=== PATIENT | male | born 1940 | race Caucasian/White ===

== ENCOUNTER → 2019-04-29 14:19 | Outpatient (CLI) | payer MEDICARE, OTHER, SELFPAY ==
--- NOTE | 2019-04-29 14:23 | DI.RAD.S_ITS ---
PROCEDURE: XR LUMBAR SPINE 2-3V INDICATIONS: right lumbar pain TECHNIQUE: 3 views of the lumbar spine were acquired. COMPARISON: [facility], CT, CT CHEST ABDOMEN PELVIS WITH CONTRAST, 03/20/2018, 9:16. [facility], CT, CT ABDOMEN WITH CONTRAST, 02/01/2019, 10:24. FINDINGS: Bones: 12 pairs of ribs are seen in the comparison chest CT. There are 6 jib-rfs-ydlqagi vertebrae. The last lumbar vertebra is designated as lumbarized S1. There is grade 1 anterolisthesis of L4 on L5 and L5 on S1. No vertebral body compression fractures. No suspicious bony lesions. There is moderate degenerative disc disease at L4-L5 and L5-S1, and mild degenerative disease at other levels. Severe facet arthropathy is present at L4-L5 and L5-S1. Soft tissues: Overlying bowel gas pattern is normal. No suspicious soft tissue calcifications. IMPRESSION: 1. Degenerative disc and facet disease. 2. 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 Dictated by: Moshe Dewitt M.D. on 04/29/2019 at 17:30 Approved by: Moshe Dewitt M.D. on 04/29/2019 at 17:35
== END ==
PROVIDERS: PCP Internal Medicine Geriatric Medicine; Visit Provider Registered Nurse
DX: M47.817 Spondylosis without myelopathy or radiculopathy, lumbosacral region (principal); M47.816 Spondylosis without myelopathy or radiculopathy, lumbar region; M54.5 Low back pain; M51.36 Other intervertebral disc degeneration, lumbar region; M51.37 Other intervertebral disc degeneration, lumbosacral region; M43.16 Spondylolisthesis, lumbar region; M43.17 Spondylolisthesis, lumbosacral region
CPT/HCPCS: 72100; 99214

== ENCOUNTER → 2019-05-03 10:26 | Outpatient (CLI) | payer MEDICARE, OTHER, SELFPAY ==
--- NOTE | 2019-05-03 10:28 | DI.CT.S_ITS ---
PROCEDURE: CT LUMBAR SPINE WO CON INDICATIONS: right lumbar pain TECHNIQUE: Noncontrast 3 mm thick sections acquired from the T12 level to the sacrum. Sagittal and coronal reformats were constructed. For radiation dose reduction, the following was used: automated exposure control. COMPARISON: [facility], CR, XR LUMBAR SPINE 2-3V, 04/29/2019, 14:21. FINDINGS: Image quality: Excellent. Bones: No acute vertebral body compression fractures. No suspicious lytic or blastic bony lesions. No pars defects. This patient has transitional lumbar anatomy. For the purposes of this examination, the level with the last well-developed pair of ribs is considered to be T12. By this numbering scheme, there is a vestigial rib seen on the right side at L1. The S1 level is considered to be a lumbarized, transitional segment. There is a relatively well developed S1-S2 segment. T11-T12: Partial bony fusion can be seen at this level, with at least moderate loss of disc height. Bridging endplate osteophytes are seen. Mild bilateral neural foraminal narrowing is seen. Moderate central canal narrowing is seen. T12-L1: The disc height is well-preserved. Bridging endplate osteophytes are seen. No significant neural foraminal or central canal narrowing can be seen. L1-L2: The disc height is well-preserved. Calcification of the posterior aspect of the annulus fibrosis can be seen. Partially bridging anterior osteophytes are seen. Moderate generalized disc bulge is seen. Njon-km-cpgyrspg bilateral neural foraminal narrowing is seen. There is at least moderate central canal narrowing seen, with facet hypertrophy. L2-L3: The disc height is well-preserved. There is calcification seen involving the posterior aspect of the annulus fibrosis. There is at least moderate bilateral neural foraminal narrowing seen, left worse than right. Moderate central canal narrowing is seen. L3-L4: The disc height is well preserved. There is a Schmorl's node seen involving the inferior endplate of L3, as on series 4 image 22. Moderate generalized disc bulge is seen. Moderate facet joint hypertrophy is seen. Moderate to severe bilateral neural foraminal narrowing is seen. Moderate to severe central canal narrowing is seen. L4-L5: The disc height is relatively well-preserved. Moderate to severe disc bulge is seen. Large prominent facet hypertrophy is seen. There is moderate to severe bilateral neural foraminal narrowing seen. Moderate to severe central canal narrowing is seen. L5-S1: Grade 1 anterolisthesis is seen at this level. There is at least moderate loss of disc height seen, which is more prominent on the right side than on the left. Partially bridging endplate osteophytes are seen on the right. There is moderate to severe bilateral neural foraminal narrowing seen, right worse than left. Moderate to severe central canal narrowing is seen. S1-S2: Mild loss of disc height is seen. There is mild to moderate disc bulge seen. There is moderate right-sided neural foraminal narrowing seen. No significant left-sided neural foraminal narrowing is seen. Apparent paravertebral posterior elements can be seen on the left with a left hemilaminotomy. Please correlate with known patient history. No significant central canal narrowing is seen. Soft tissues: No retroperitoneal masses or hematomas. Visualized aorta is normal in caliber. Pacer leads are seen on the rn ostomy image. IMPRESSION: Multiple levels of lumbar spine degenerative change are seen, which are most prominent inferiorly. Transitional lumbar anatomy. Dictated by: Delano Shirley M.D. on 05/03/2019 at 11:24 Approved by: Delano Shirley M.D. on 05/03/2019 at 11:32
== END ==
PROVIDERS: Family Provider Internal Medicine Geriatric Medicine; PCP Internal Medicine Geriatric Medicine; Visit Provider Physical Medicine & Rehabilitation
DX: M54.5 Low back pain (principal); M47.817 Spondylosis without myelopathy or radiculopathy, lumbosacral region; M47.816 Spondylosis without myelopathy or radiculopathy, lumbar region
CPT/HCPCS: 72131

== ENCOUNTER 2019-06-04 13:47 | Outpatient (CLI) | payer MEDICARE, OTHER, SELFPAY ==
--- NOTE | 2019-06-04 13:49 | DI.RAD.S_ITS ---
PROCEDURE: PAIN L/SI FACET INJ/BLK 1STL INDICATIONS: SPONDYLOSIS FINDINGS: Fluoroscopic spot filming was performed to verify placement of spinal needles at the right L4, L5, S1 level(s) 4 medial branch block, as labeled on the films. Appropriate location(s) of the needle tip(s) was confirmed by injection of iodinated contrast. IMPRESSION: Successful unilateral right-sided needle tip localization for 3 level medial branch block on the right. Dictated by: Lazarus Jones M.D. on 06/04/2019 at 16:24 Approved by: Lazarus Jones M.D. on 06/04/2019 at 16:24
[2019-06-04 13:57] VITALS: BP 157/80; PULSE 67; RESP 16; TEMP 36.6; O2SAT 98
[2019-06-04 14:48] VITALS: BP 161/85; PULSE 61; RESP 16; O2SAT 97
[2019-06-04] MEDS: MIDAZOLAM 5 MG/5 ML VIAL IV (14:50)
[2019-06-04 14:53] VITALS: BP 131/78; PULSE 65; RESP 16; O2SAT 98
[2019-06-04] MEDS: BUPIVACAINE 0.5% (PF) VIAL 2 ML INJ (14:58)
[2019-06-04] MEDS: IOPAMIDOL 15 ML VIAL 3 ML INJ (14:58)
[2019-06-04] MEDS: LIDOCAINE 1% 20 ML 10 ML INJ (14:58)
[2019-06-04] MEDS: BETAMETHASONE 30 MG/5 ML MDV 12 MG INJ (14:58)
[2019-06-04 14:59] VITALS: BP 138/74; PULSE 62; RESP 16; O2SAT 98
--- NOTE | 2019-06-04 15:00 | PC.NURSE ---
ASSISTING PT OFF TABLE AND TRANSPORTING TO POST PROC AREA IN STABLE CONDITION. PASSING RN CARE OF PT TO DANIEL Rucker RN. PREPPED AND ADMINISTERED VERSED AND FENTANYL. ALL 0THER MEDS PREPPED AND ADMINISTERED BY DR. JONES.
[2019-06-04 15:05] VITALS: BP 140/78; PULSE 67; RESP 16; O2SAT 95
--- NOTE | 2019-06-04 15:07 | PM.PROC.1 ---
Procedures Date/Time Date of procedure: 06/04/19 Time of procedure: 15:08 General Procedure description: POST OP DIAGNOSIS 1. FACET ARTHROPATHY PROCEDURES 1. Right L4, L5 and S1 MB BLOCKS PHYSICIAN: DO LEAH Jurado is referred by Dr. Marti for treatment of Right Axial LBP. DESCRIPTION OF PROCEDURE Fluoroscopically guided, contrast-controlled right L4, L5 and S1 medial branch blocks with 0.5cc of 0.5% Marcaine. Following review of allergy and review of potential side effects and complications, including, but not necessarily limited to, infection, allergic reaction, local tissue breakdown, nerve injury, paralysis, stroke and possible , the patient indicated that the patient understood and agreed to proceed. An informed consent document was signed by the patient, witnessed by a nurse, and placed in the patient's chart. After review of previous anaesthesic history and IV conscious sedation the patient was deemed safe to proceed with todays procedure with IV conscious sedation as ASA class II designation. Safety time-out was performed to confirm patient ID, procedure to be performed and site of procedure. IV sedation was accomplished with a combination of 2mg of Versed was administered by the RN after DO order, titrated to patient comfort during the course of the procedure while the patient remained responsive to all verbal commands In the prone position, following sterile prep and drape of the lumbar region, the right L4, L5 and S1 anatomical location of the medial branch of the dorsal ramus was identified fluoroscopically. Subsequently an anesthetic skin wheal using 1% lidocaine solution was initiated at each of the anatomical spots. Subsequently then a 22-gauge 3.5-inch spinal needle was atraumatically introduced and advanced under fluoroscopic guidance at each of the corresponding sites at the right L4, L5 and S1 MB. After negative aspiration, 0.2 cc of Isovue 200 was injected, confirming placement without vascular or intrathecal uptake. Subsequently then 0.5 cc of 0.5% Marcaine solution was injected at each of the corresponding sites at the right L4, L5 and S1 medial branch locations. The patient tolerated the procedure well without signs or symptoms of complications. The procedure tolerated the procedure well without signs or symptoms of complications prior to transfer to the recovery area continued monitoring without incident. Post-procedure, the patient was monitored initiating provocative activities to measure the amount of relief from block of the facetogenic pain. The patient reported a VAS of 7 prior to the procedure and a post-procedure VAS of 1. It has been a pleasure to assist in the diagnostic and therapeutic care of your patient. Total Fluoroscopy Time: 24.8 seconds Total Conscious Sedation Time: 24min POST OP INSTRUCTIONS The patient was provided with a Pain Log to complete over the next several hours and subsequent days prior to the patient's follow up with the ordering physician. If the patient has manager clinical research relief to the solution applied, then they may be a candidate for medial branch rhizotomy. The patient is aware, was provided, once again, with a Pain Log and will follow up with the referring physician for review and clinical correlation Yvon Peña DO Complications: none
[2019-06-04 15:45] VITALS: BP 174/56; PULSE 60; RESP 16; O2SAT 95
--- NOTE | 2019-06-04 15:50 | PC.NURSE ---
ID note: Assuming care post procedure, received patient from Mckenna GAN , awake, alert, and stable.
== END 2019-06-04 15:51 | disposition home or self-care (01) ==
PROVIDERS: Family Provider Internal Medicine Geriatric Medicine; PCP Internal Medicine Geriatric Medicine; Visit Provider Physical Medicine & Rehabilitation
DX: M47.816 Spondylosis without myelopathy or radiculopathy, lumbar region (principal); M47.817 Spondylosis without myelopathy or radiculopathy, lumbosacral region; M54.5 Low back pain
CPT/HCPCS: 64493; 64494; 99152; J0702; J2250; J3010

== ENCOUNTER 2019-07-20 07:06 | Outpatient (CLI) | payer MEDICARE, OTHER, SELFPAY ==
[2019-07-20] VITALS (12 sets, daily range): BP systolic 137–179; BP diastolic 68–90; PULSE 57–73; RESP 16; TEMP 36.2; O2SAT 94–96
--- NOTE | 2019-07-20 07:09 | DI.RAD.S_ITS ---
PROCEDURE: PAIN L/S MED/LAT N RFA INDICATIONS: SPONDYLOSIS FINDINGS: Fluoroscopic spot filming was performed to verify placement of spinal needles at the L4, L5, S1 level(s), as labeled on the films. Appropriate location(s) of the needle tip(s) was confirmed by injection of iodinated contrast. Dictated by: Yony Brady M.D. on 07/20/2019 at 10:13 Approved by: Yony Brady M.D. on 07/20/2019 at 10:14
[2019-07-20] MEDS: fentaNYL 100 MCG/2 ML INJ 50 MCG IV (08:52)
[2019-07-20] MEDS: MIDAZOLAM 5 MG/5 ML VIAL IV (08:52)
[2019-07-20] MEDS: LIDOCAINE 1% 20 ML 10 ML INJ (09:04)
[2019-07-20] MEDS: BUPIVACAINE 0.5% (PF) VIAL 2 ML INJ (09:04)
--- NOTE | 2019-07-20 09:13 | PC.NURSE ---
ASSISTING PT OFF TABLE AND TRANSPORTING TO POST PROC AREA IN STABLE CONDITION. PASSING RN CARE OF PT TO EVELIN Weller RN.
--- NOTE | 2019-07-20 09:22 | P.PCN_ITS ---
Procedures Date/Time Date of procedure: 07/20/19 Time of procedure: 09:22 General Procedure description: PREOP DIAGNOSIS 1. RECALCITRANT FACET ARTHROPATHY, POST OP DIAGNOSIS 1. RECALCITRANT FACET ARTHROPATHY, PROCEDURES 1. RIGHT L4 AND L5 MEDIAL BRANCH RADIOFREQUENCY NEUROTOMY AND RIGHT S1 DORSAL RAMUS BRANCH RADIOFREQUENCY NEUROTOMY, SURGEON: Yvon Peña, DO INDICATIONS Carlos is referred by for treatment of facet arthropathy. DESCRIPTION OF PROCEDURE Right L4 and L5 medial branch radiofrequency neurotomy and right S1 dorsal ramus branch radiofrequency neurotomy under fluoroscopy with conscious sedation. The patient is well known to this clinic having undergone previous facet injections with good but temporary relief. The patient has experienced appropriate, concordant relief with previous facet and median branch blocks but the patient's pain has been recalcitrant to further conservative measures. Therefore, based upon the patient's relief and persistent symptoms, the patient is considered an appropriate candidate for facet rhizotomy. All of the patient's questions regarding the risks versus benefits of the procedure, including, but not limited to, bleeding, infection, temporary as well as lasting nerve injury, paralysis, stroke, and , as well treatment alternatives were answered to satisfaction. After review of previous anaesthesic history and IV conscious sedation the patient was deemed safe to proceed with todays procedure with IV conscious sedation as ASA class II designation. Safety time-out was performed to confirm patient ID, procedure to be performed and site of procedure. IV sedation was accomplished with a combination of 2mg of Versed and 50mcg of Fentanyl was administered by the RN after DO order, titrated to patient comfort during the course of the procedure while the patient remained responsive to all verbal commands. After obtaining informed consent, denial of pertinent drug allergies, as well as being made aware of the potential risks of bleeding, infection, spinal cord trauma, paralysis, temporary and permanent nerve damage, seizure, stroke, and possible , the patient was brought to the fluoroscopy suite and positioned prone on the fluoroscopy table. The lumbar region was prepped with Betadine and covered with a fenestrated drape in the usual sterile fashion. Appropriate monitors applied including pulse oximeter, pulse, and blood pressure for regular monitoring throughout the procedure. After local infiltration using 1% lidocaine, under fluoroscopic guidance, a 10- cm RF insulated needle with a 10-mm active tip was positioned parallel to the junction of the right sacral ala and the superior articulating process where the S1 dorsal ramus resides. Needle placement was confirmed with sensory stimulation at 50 Hz, with motor stimulation of .5v on the right which produced local stimulation without radicular component. The stimulation was then increased to 1.5v with, once again, only local multifidus stimulation without radicular component. This was then followed by two discreet lesions performed at 80 degrees Celsius for 90 seconds each. The needle was then removed and the identical procedure was performed along the length of the right L5 medial branch with motor stimulation at .7v on the right. The identical procedure was once again performed along the length of the right L4 medial branch with motor stimulation of .5v on the right. The patient tolerated the procedure well without signs or symptoms of complications prior to transfer to the recovery area continued monitoring without incident. The patient was then transferred to the recovery area where they were observed for an appropriate period of time after the injection. The patient was then transferred to the recovery area where they were observed for an appropriate period of time after the injection. The patient reported a VAS score of 9 prior to the procedure and a post- procedure VAS of 0. Total Fluoroscopy Time: 11 seconds Total Conscious Sedation Time: 45min POST OP INSTRUCTIONS The patient was provided a Pain Log to continue to record the patient's response to the target-specific procedure prior to the patient's follow-up visit with the referring physician. Additionally, specific post-injection care instructions and a contact number to our office were provided if concerns arise regarding possible complications associated with the procedure are suspected. Yvon Peña DO Complications: none
--- NOTE | 2019-07-20 10:01 | PC.NURSE ---
Post procedural discharge note: Patient arrived at 0925. Patient awake and alert. VSS on arrival. Pain level 0/10 denies any unusual numbness or tingling to lower extremities. Handoff report received from Anupama Baker RN. Discharged to home, w/c to car with spouse [id number].
== END 2019-07-20 09:55 | disposition home or self-care (01) ==
LOC: RAD 07:08
PROVIDERS: Family Provider Internal Medicine Geriatric Medicine; PCP Internal Medicine Geriatric Medicine; Visit Provider Physical Medicine & Rehabilitation
DX: M47.817 Spondylosis without myelopathy or radiculopathy, lumbosacral region (principal); M47.816 Spondylosis without myelopathy or radiculopathy, lumbar region
CPT/HCPCS: 64635; 64636; 99152; J2250; J3010